=== PATIENT | female | born 1940 | race Caucasian/White ===

== ENCOUNTER 2018-06-14 13:16 | Emergency (ER) | payer MEDICARE, MEDICAID ==
[2018-06-14] MEDS ORDERED: Azithromycin 250 MG TAB ONE (14:31)
== END 2018-06-14 14:37 | disposition home or self-care (01) ==
LOC: NAV ERS 13:16
DX: J01.90 Acute sinusitis, unspecified (principal); F32.9 Major depressive disorder, single episode, unspecified; K21.9 Gastro-esophageal reflux disease without esophagitis; I10 Essential (primary) hypertension; E78.5 Hyperlipidemia, unspecified; E03.9 Hypothyroidism, unspecified; J44.9 Chronic obstructive pulmonary disease, unspecified; F17.210 Nicotine dependence, cigarettes, uncomplicated
CPT/HCPCS: 93005

== ENCOUNTER 2018-11-05 19:30 | Emergency (ER) | payer MEDICARE, MEDICAID ==
[2018-11-05 20:42] LABS: #Basophils 0.1 thou/uL (0.0-0.2); #Eosinphils 0.1 thou/uL (0.0-0.7); #Lymphocytes 1.7 thou/uL (1.20-3.40); #Neutrophils 6.8 thou/uL (1.40-6.50); %Basophils 1.3 % (0.0-1.0); %Eosinophils 0.6 % (0.0-10.0); %Lymphocytes 17.5 % (21.0-51.0); %Monocytes 9.9 % (0.0-10.0); %Neutrophils 70.7 % (42.0-75.0); Hemoglobin 14.3 g/dL (12.0-16.0); Mean Corpuscular HGB CONC 31.1 g/dL (32.0-36.0); Mean Corpuscular Hemoglobin 28.8 pg (27.0-31.0); Mean Corpuscular Volume 92.6 fL (78.0-98.0); Mean Platelet Volume 9.3 fL (7.4-10.4); Platelet Count 190 thou/uL (130-400); RBC Distribution Width 11.9 % (11.5-14.5); Red Blood Cell (RBC) Count 4.96 mill/uL (4.20-5.40); White Blood Cell (WBC) Count 9.7 thou/uL (4.8-10.8)
--- NOTE | 2018-11-05 20:43 | RAD ---
FEXAM: Chest PA and lateral: HISTORY: Cough COMPARISON: 01/21/2018 FINDINGS: Mild hyperexpansion. Lung erickson are clear. Vascular markings are normal. Heart and mediastinum appear unremarkable. Vascularity is normal. Osseous structures are unremarkable. IMPRESSION: No acute finding
[2018-11-05 20:53] LABS: Anion Gap 14 mmol/L (10-20); BUN (Urea Nitrogen) 10 mg/dL (9.8-20.1); Calc. Creatinine Clearance 0 mL/min (70-130); Carbon Dioxide 29 mmol/L (23-31); Chloride 103 mmol/L (98-107); Estimated GFR-MDRD 75; Potassium 4.2 mmol/L (3.5-5.1); Sodium 142 mmol/L (136-145)
[2018-11-05 20:54] LABS: ALT (SGPT) 18 U/L (8-55); AST (SGOT) 25 U/L (5-34); Albumin 3.9 g/dL (3.4-4.8); Alkaline Phosphatase 98 U/L (40-150); Bilirubin, Total 0.3 mg/dL (0.2-1.2); Calcium 9.4 mg/dL (7.8-10.44); Globulin 2.5 g/dL (2.4-3.5); Glucose 120 mg/dL (83-110); Protein, Total 6.4 g/dL (6.0-8.3)
[2018-11-05] MEDS ORDERED: Azithromycin 250 MG TAB ONE (21:03)
[2018-11-05] MEDS ORDERED: predniSONE 20 MG TAB ONE (21:03)
== END 2018-11-05 21:21 | disposition home or self-care (01) ==
LOC: NAV ERS 19:30
DX: J44.1 Chronic obstructive pulmonary disease with (acute) exacerbation (principal); E78.5 Hyperlipidemia, unspecified; I10 Essential (primary) hypertension; E03.9 Hypothyroidism, unspecified; F17.210 Nicotine dependence, cigarettes, uncomplicated; K21.9 Gastro-esophageal reflux disease without esophagitis; F32.9 Major depressive disorder, single episode, unspecified; Z79.51 Long term (current) use of inhaled steroids; Z79.899 Other long term (current) drug therapy
CPT/HCPCS: 71046; 80053; 83605; 85025

== ENCOUNTER 2019-09-07 18:54 | Emergency (ER) | payer MEDICARE, MEDICAID ==
[2019-09-07] MEDS ORDERED: HYDROcodone/Acetaminophen 5/325 mg Tablet ONE (19:19)
[2019-09-07] MEDS ORDERED: Dexamethasone 20 MG/5 ML VIAL ONE (19:19)
--- NOTE | 2019-09-07 20:14 | RAD ---
LUMBAR SPINE SERIES THREE VIEWS: 09/07/19 HISTORY: Low back pain. The bones appear demineralized. Vertebral bodies maintain normal height. There is some mild disc narr owing along the course of the spine and degenerative facet changes. The disc narrowing is most pronou nced at L5-S1. Vascular calcifications are noted. 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 No acute findings. POS: [facility]
== END 2019-09-07 20:24 | disposition home or self-care (01) ==
LOC: NAV ERS 18:54
DX: M54.5 Low back pain (principal); I10 Essential (primary) hypertension; E03.9 Hypothyroidism, unspecified; K21.9 Gastro-esophageal reflux disease without esophagitis; E78.5 Hyperlipidemia, unspecified; J43.9 Emphysema, unspecified; F17.210 Nicotine dependence, cigarettes, uncomplicated; F32.9 Major depressive disorder, single episode, unspecified; Z79.899 Other long term (current) drug therapy
CPT/HCPCS: 72100; 96372; J1100

== ENCOUNTER 2019-10-01 22:35 | Emergency (ER) | payer MEDICARE, MEDICAID ==
[2019-10-01 23:17] LABS: #Lymphocytes 2.7 thou/uL (1.20-3.40); #Monocytes 0.7 thou/uL (0.11-0.59); %Basophils 0.4 % (0.0-1.0); %Eosinophils 0.3 % (0.0-10.0); %Lymphocytes 23.4 % (21.0-51.0); %Monocytes 6.1 % (0.0-10.0); %Neutrophils 69.8 % (42.0-75.0); Hemoglobin 12.4 g/dL (12.0-16.0); Mean Corpuscular Hemoglobin 29.7 pg (27.0-31.0); Mean Corpuscular Volume 92.8 fL (78.0-98.0); Mean Platelet Volume 8.1 fL (7.4-10.4); Platelet Count 268 thou/uL (130-400); RBC Distribution Width 13.3 % (11.5-14.5); Red Blood Cell (RBC) Count 4.16 mill/uL (4.20-5.40); White Blood Cell (WBC) Count 11.4 thou/uL (4.8-10.8)
[2019-10-01] MEDS ORDERED: Morphine 2 MG/ML SYRINGE ONE (23:19)
[2019-10-01] MEDS ORDERED: Ondansetron ODT 4 MG TAB ONE (23:20)
[2019-10-01 23:31] LABS: ALT (SGPT) 27 U/L (8-55); AST (SGOT) 32 U/L (5-34); Albumin 3.4 g/dL (3.4-4.8); Alkaline Phosphatase 98 U/L (40-110); Anion Gap 15 mmol/L (10-20); BUN (Urea Nitrogen) 15 mg/dL (9.8-20.1); Bilirubin, Total 0.4 mg/dL (0.2-1.2); Calc. Creatinine Clearance 0 mL/min (70-130); Calcium 8.5 mg/dL (7.8-10.44); Carbon Dioxide 28 mmol/L (23-31); Chloride 104 mmol/L (98-107); Estimated GFR-MDRD 59; Globulin 2.3 g/dL (2.4-3.5); Glucose 151 mg/dL (83-110); Magnesium 1.9 mg/dL (1.6-2.6); Potassium 3.7 mmol/L (3.5-5.1); Protein, Total 5.7 g/dL (6.0-8.3); Sodium 143 mmol/L (136-145)
--- NOTE | 2019-10-01 23:39 | RAD ---
Right shoulder 3 views HISTORY: Right shoulder pain. FINDINGS: Acromioclavicular and glenohumeral alignment are maintained with mild osteophytosis. Osseou s structures are demineralized. No acute fracture or dislocation. Ejecting immediately medial to the humeral neck on the external rotation view is a smoothly marginate d oval 0.8 cm calcification. IMPRESSION: Osteoporosis. No acute osseous abnormalities are demonstrated. Probable intracapsular loose body.
--- NOTE | 2019-10-01 23:40 | RAD ---
Chest one view HISTORY: Tachycardia. COMPARISON: 11/05/2018. FINDINGS: Cardiac silhouette is magnified by projection. Pulmonary vasculature is engorged with patch y bilateral perihilar and bibasilar infiltrates. Linear of each costophrenic angle suggests small amount of pleural fluid. Mediastinum is midline with aortic calcification. No evidence of pneumothora x. IMPRESSION: Pulmonary vascular congestion/borderline edema with small amount of bilateral pleural flu id. Atherosclerosis.
== END 2019-10-02 01:05 | disposition left against medical advice (07) ==
LOC: NAV ERS 22:35
DX: I48.91 Unspecified atrial fibrillation (principal); J90 Pleural effusion, not elsewhere classified; J81.1 Chronic pulmonary edema; M25.511 Pain in right shoulder; E78.5 Hyperlipidemia, unspecified; I10 Essential (primary) hypertension; E03.9 Hypothyroidism, unspecified; K21.9 Gastro-esophageal reflux disease without esophagitis; J43.9 Emphysema, unspecified; Z86.73 Personal history of transient ischemic attack (TIA), and cerebral infarction without residual deficits; F32.9 Major depressive disorder, single episode, unspecified; F17.210 Nicotine dependence, cigarettes, uncomplicated; Z79.51 Long term (current) use of inhaled steroids; Z79.899 Other long term (current) drug therapy; Z79.01 Long term (current) use of anticoagulants
CPT/HCPCS: 71045; 80053; 83735; 84443; 84484; 85025; 93005; 94760; 96374; J2270; Q0162

== ENCOUNTER 2020-10-30 20:17 | Emergency (ER) | payer MEDICARE, MEDICAID ==
[2020-10-30 21:06] LABS: #Basophils 0.1 thou/uL (0.0-0.2); #Eosinphils 0.1 thou/uL (0.0-0.7); #Lymphocytes 3.1 thou/uL (1.20-3.40); #Monocytes 1.2 thou/uL (0.11-0.59); #Neutrophils 12.6 thou/uL (1.40-6.50); %Basophils 0.5 % (0.0-1.0); %Eosinophils 0.3 % (0.0-10.0); %Lymphocytes 18.4 % (21.0-51.0); %Monocytes 6.7 % (0.0-10.0); %Neutrophils 74.1 % (42.0-75.0); Mean Corpuscular HGB CONC 33.9 g/dL (32.0-36.0); Mean Corpuscular Hemoglobin 31.1 pg (27.0-31.0); Mean Corpuscular Volume 91.5 fL (78.0-98.0); Platelet Count 245 thou/uL (130-400); RBC Distribution Width 11.5 % (11.5-14.5); Red Blood Cell (RBC) Count 4.83 mill/uL (4.20-5.40)
[2020-10-30 21:53] LABS: ALT (SGPT) 30 U/L (8-55); AST (SGOT) 33 U/L (5-34); Albumin 3.5 g/dL (3.4-4.8); Alkaline Phosphatase 121 U/L (40-110); Anion Gap 17 mmol/L (10-20); BUN (Urea Nitrogen) 13 mg/dL (9.8-20.1); Bilirubin, Total 0.8 mg/dL (0.2-1.2); Calc. Creatinine Clearance 0 mL/min (70-130); Calcium 8.5 mg/dL (7.8-10.44); Carbon Dioxide 23 mmol/L (23-31); Chloride 103 mmol/L (98-107); Globulin 2.9 g/dL (2.4-3.5); Glucose 79 mg/dL (83-110); Lipase 25 U/L (8-78); Potassium 4.1 mmol/L (3.5-5.1); Protein, Total 6.4 g/dL (5.8-8.1); Sodium 139 mmol/L (136-145)
[2020-10-30 22:11] LABS: Bilirubin Negative (Negative); Blood, Urine Negative (Negative); Clarity Clear (Clear); Glucose, Urine (Dipstick) Negative (Negative); Ketone, Urine Negative (Negative); Leukocyte Negative (Negative); Nitrite Negative (Negative); Protein, Urine (Dipstick) Negative (Neg-Trace); Urobilinogen 0.2 mg/dL (Less than 2)
[2020-11-01 12:34] LABS: SARS-CoV-2 PCR by NAA DETECTED (NotDetected)
== END 2020-10-30 23:25 | disposition left against medical advice (07) ==
LOC: NAV ERS 20:17
DX: U07.1 COVID-19 (principal); D72.829 Elevated white blood cell count, unspecified; E78.5 Hyperlipidemia, unspecified; I10 Essential (primary) hypertension; E03.9 Hypothyroidism, unspecified; K21.9 Gastro-esophageal reflux disease without esophagitis; J43.9 Emphysema, unspecified; F17.210 Nicotine dependence, cigarettes, uncomplicated
CPT/HCPCS: 71045; 80053; 81003; 83605; 83690; 84484; 85025; 93005; 94760; 99284; U0003; U0005; 87635

== ENCOUNTER 2024-09-10 02:18 | Emergency (ER) | payer OTHER, MEDICAID ==
[2024-09-10] MEDS ORDERED: Doxycycline 100 MG CAP ONE (02:53)
== END 2024-09-10 03:06 | disposition home or self-care (01) ==
LOC: NAV ERS 02:18
DX: L08.9 Local infection of the skin and subcutaneous tissue, unspecified (principal); E78.5 Hyperlipidemia, unspecified; I10 Essential (primary) hypertension; J44.9 Chronic obstructive pulmonary disease, unspecified; F17.210 Nicotine dependence, cigarettes, uncomplicated
CPT/HCPCS: 99283